=== PATIENT | male | born 1945 | race Two or more races ===

== ENCOUNTER 2017-10-21 04:49 | Inpatient (IN) | payer MEDICARE, MEDICAID ==
[~2017-10-21] VITALS: Ht 175.3 cm; Wt 83.0 kg
--- NOTE | 2017-10-21 04:55 | NUR ---
TO BED 8 BIB FAMILY MEMBER C/O L SIDED CHEST PAIN WITH SOB X1 HR E [employer]. SKIN WARM NONDIAPHORETIC. PT AAOX4 NO ACUTE DISTRESS NOTED, RESP EVEN AND UNLABORED. PLACE TP ON CARDIAC MONITORING, CONTINUOUS POX. PENDING ER MD RON.
[2017-10-21 05:20] LABS: BASOPHILS # (AUTO) 0.1 /CMM (0.0-0.2); BASOPHILS % (AUTO) 1.5 % (0.0-2.0); EOSINOPHILS # (AUTO) 0.2 /CMM (0.0-0.7); EOSINOPHILS % (AUTO) 2.6 % (0.0-6.0); HEMATOCRIT 38 % (39-51); HEMOGLOBIN 13.4 g/dL (13.5-17.5); LYMPHOCYTES # (AUTO) 2.5 /CMM (0.8-4.8); LYMPHOCYTES % (AUTO) 37.3 % (20.0-44.0); MEAN CORPUSCULAR HEMOGLOBIN 33 PG (26.0-33.0); MEAN CORPUSCULAR HGB CONC 36 g/dl (31.0-36.0); MEAN CORPUSCULAR VOLUME 93 fL (80-96); MONOCYTES # (AUTO) 0.3 /CMM (0.1-1.30); MONOCYTES % (AUTO) 4.9 % (2.0-12.0); NEUTROPHILS # (AUTO) 3.6 /CMM (1.8-8.9); NEUTROPHILS % (AUTO) 53.7 % (43.0-81.0); PLATELET COUNT (AUTO) 132 /CMM (150-450); RED BLOOD CELL COUNT(AUTO) 4.06 MIL/uL (4.5-6.0); WHITE BLOOD COUNT (AUTO) 6.7 K/uL (4.3-11.0)
[2017-10-21] MEDS ORDERED: ASPIRIN 325 MG TABLET ONE (05:27)
[2017-10-21] MEDS ORDERED: NITROGLYCERIN 0.4 MG/TAB BOTTLE ONE (05:27)
[2017-10-21] MEDS ORDERED: NITROGLYCERIN 0.4 MG/TAB BOTTLE SL ONE (05:30)
[2017-10-21] MEDS ORDERED: ASPIRIN 325 MG TABLET PO ONE (05:30)
[2017-10-21 05:33] LABS: INR 1.07 (0.87-1.13)
[2017-10-21 05:34] LABS: CALCIUM, SERUM 8.8 mg/dL (8.5-10.1); CARBON DIOXIDE 21 mmol/L (21-32); CHLORIDE 102 mmol/L (98-107); CREATININE 1.2 mg/dL (0.6-1.3); GLUCOSE 119 mg/dL (74-106); POTASSIUM 3.9 mmol/L (3.5-5.1); SODIUM SERUM 135 mmol/L (136-145); UREA NITROGEN, BLOOD 19 mg/dL (7-18)
[2017-10-21 05:39] LABS: TROPONIN I < 0.017 ng/mL (0.00-0.056)
[2017-10-21] MEDS ORDERED: SOFO1TAB PO (05:52)
--- NOTE | 2017-10-21 05:53 | NUR ---
REPORT CALLED TO [facility]. ER MD TALKING TO ER MD REGARDING TP ADMISSION. WILL TRANSPORT PT VIA ACLS PRTOCOL.
--- NOTE | 2017-10-21 05:53 | NUR ---
RN NOTE RECEIVED REPORT FROM ED MANAGER RN FOR CONTINUITY OF CARE.
--- NOTE | 2017-10-21 06:10 | NUR ---
RN NOTE RECEIVED PT IN NO ACUTE DISTRESS IN BED. PT IS A/O X 4 AND ABLE MAKE NEEDS KNOWN. PT IS ON O2 @ 2LPM NC AND TOLERATING WELL WITH O2 SAT @ 98%. PT IS ON TELE WITH SR ON THE MONITOR. PT IS ABLE TO AMBULATE TO BED WITH A STEADY GAIT. PT HAS RFA 18G THAT IS CLEAN DRY INTACT AND PATENT WITH SALINE FLUSH. PT NOT C/O ANY SOB OR DIFFICULTY BREATHING. PT C/O LOWER BACK PAIN FROM PREVIOUS BACK SX. HELPED PT REPOSITION INTO COMFORTABLE POSITION. BED IN LOW LOCK POSITION WITH RIALS UP X 2. ALL SAFETY MEASURES ENSURED AND CARRIED OUT. WILL CONTINUE TO MONITOR PT.
[2017-10-21 06:26] VITALS: BP 153/90
[2017-10-21] MEDS ORDERED: ONDANSETRON HCL/PF 4 MG/2 ML VIAL IVP PRN (06:30)
[2017-10-21] MEDS ORDERED: NITROGLYCERIN PACKET 1 GM PACKET TOP ONE (06:30)
[2017-10-21] MEDS ORDERED: HYDROCODONE/APAP 5/325MG 1 EACH TABLET PO PRN (06:30)
[2017-10-21] MEDS ORDERED: MAG HYDROX/AL HYDROX/SIMETH 30 ML UDC PO PRN (06:30)
[2017-10-21] MEDS ORDERED: Z GUARD REMEDY 2 OZ OINT TP PRN (06:30)
[2017-10-21] MEDS ORDERED: MAGNESIUM HYDROXIDE 30 ML UDC PO PRN (06:30)
[2017-10-21] MEDS ORDERED: ACETAMINOPHEN 325 MG TABLET PO PRN (06:30)
--- NOTE | 2017-10-21 07:23 | NUR ---
RN NOTE ATTEMPTED TO PLACE PT ON O2 VIA NC AND PT REFUSED. EDUCATED PT ON WHY O2 IS NECESSARY. PT STILL REFUSED. CHECK O2 SAT AND PT IS @ 98% ON RA.
--- NOTE | 2017-10-21 07:30 | NUR ---
RN OPENING NOTES RECEIVED PT. PT STABLE AND RESTING IN BED. A/OX3. NO S/S OF RESP DISTRESS OR SOB. PT DENIES PRESENCE OF PAIN OR CHEST PAIN. PT REFUSING TO USE NC FOR 2L O2, HOWEVER O2 SAT HAS REMAINED WNL, WILL CONTINUE TO MONITOR. IV ACCESS LOCATED ON RIGHT FA 18G CURRENTLY SL. SAFETY MEASURES IN PLACE, CALL LIGHT WITHIN REACH. WILL CONTINUE TO MONITOR.
[2017-10-21 08:00] VITALS: BP 131/70
[2017-10-21] MEDS: ENOXAPARIN SODIUM 40 MG/0.4 ML DISP.SYRIN SQ SCH (09:00)
[2017-10-21] MEDS: ASPIRIN 325 MG TABLET PO SCH (09:00)
[2017-10-21 09:51] LABS: THYROID STIMULATING HORMONE 2.598 uIU/mL (0.358-3.74)
[2017-10-21 12:00] VITALS: BP 139/76
[2017-10-21] MEDS: METOPROLOL TARTRATE 50 MG TABLET PO SCH ×2 (12:00→18:00)
[2017-10-21] MEDS: NITROGLYCERIN PACKET 1 GM PACKET TOP SCH ×2 (13:00→21:00)
--- NOTE | 2017-10-21 15:35 | NUR ---
RN NOTES PT REFUSING AM AND NOON TIMES MEDICATIONS. ALL PT NEEDS ANTICIPATED AND MET. SAFETY MEASURES IN PLACE, CALL LIGHTW [place] REACH. WILL CONTINUE TO MONITOR.
[2017-10-21 16:00] VITALS: BP 144/80
--- NOTE | 2017-10-21 18:49 | NUR ---
RN CLOSING NOTE PT IN BED EATING DINNER. STABLE, VSS. NO S/S OF RESP DISTRESS OR SOB. PT CONTINUES TO REFUSE TO WEAR NC. PT SCHEDULED FOR CARDIAC STRESS TEST IN AM OF 10/22/17. CONSENT SIGNED AND PLACED IN CHART. ALL PT NEEDS ANTICIPATED AND MET. SAFETY MEASURES IN PLACE, CALL LIGHT WITHIN REACH. WILL ENDORSE TO INFORMATION MANAGEMENT MANAGER FOR [facility].
[2017-10-21 20:00] VITALS: BP 139/85
--- NOTE | 2017-10-21 20:00 | NUR ---
TELE 1 RN NOTE PT IN UP IN HALLWAY AMBULATING WITHOUT FWW, FWW PROVIDED. AMBULATING WITH SLOW STEADY GAIT. NO DISTRESS OR DISCOMFORT NOTED. DENIES ANY CHEST PAIN. SL RFA # 18 G INTACT AND PATENT. ON TELE SR HR 82. REMINDED PT NOT TO DRINK ANY COFFEE AND NO EATING THE DRINKING AFTER MIDNIGHT. PT COMPLY. VSS. ON BED SIDE RAILS UP X 2 AND CALL LIGHT WITHIN REACH. CONTINUE TO MONITOR HIM.
[2017-10-22] VITALS: BP 145/65
[2017-10-22] MEDS: NITROGLYCERIN PACKET 1 GM PACKET TOP SCH (05:40)
[2017-10-22] MEDS: METOPROLOL TARTRATE 50 MG TABLET PO SCH ×2 (05:40)
--- NOTE | 2017-10-22 06:37 | NUR ---
TELE 1 RN NOTE PT IN BED ASLEEP, EASILY AROUSABLE. NO DISTRESS OR DISCOMFORT NOTED. DENIES PAIN. ON TELE SR HR 82 SIDE RAILS UP X 2 AND CALL LIGHT WITHIN REACH. WILL ENDORSE TO DAY SHIFT NURSE FOR CONTINUE TO CARE.
[2017-10-22 08:00] VITALS: BP 144/80
[2017-10-22] MEDS ORDERED: REGADENOSON 0.4 MG/5 ML DISP.SYRIN IVP ONE (08:00)
[2017-10-22] MEDS: ENOXAPARIN SODIUM 40 MG/0.4 ML DISP.SYRIN SQ SCH (09:00)
[2017-10-22] MEDS: ASPIRIN 325 MG TABLET PO SCH (09:00)
[2017-10-22] MEDS ORDERED: METO50TA16 PO (11:10)
[2017-10-22] MEDS ORDERED: ASPI-1152 PO (11:10)
--- NOTE | 2017-10-22 11:30 | NUR ---
RN NOTE PT LEFT AMA, HE SIGNED AMA PAPER, AFTER THE STRESS TEST COMPLETED WITHOUT WAITING THE RESULTS EVEN THOUGH D/C PLAN WAS TO SEND THE PT HOME IF STRESS TEST IS NEGATIVE. PT HAD AN IMPORTANT SCHEDULED APPOINTMENT AT [facility] FOR [facility] AT 1200, THAT IS WHY HE COULD NOT WAIT ANY LONGER. PT IS STABLE, NO SOB, DENIES PAIN. PRESCRIPTION AND PAPERS GIVEN TO PT, PT LEFT WITH DAUGHTER LANNY VIA OWN TRANSPORTATION.
== END 2017-10-22 11:36 | disposition left against medical advice (07) | DRG 303 ==
LOC: ER 04:51 → TELE-TD 05:47 → TELE1 06:29 → MEDSG1 10-22 09:49
PROVIDERS: ADMIT Internal Medicine; ATTEND Internal Medicine
DX: I25.10 Atherosclerotic heart disease of native coronary artery without angina pectoris (principal); E87.1 Hypo-osmolality and hyponatremia; K75.9 Inflammatory liver disease, unspecified; I10 Essential (primary) hypertension; F17.210 Nicotine dependence, cigarettes, uncomplicated; I25.2 Old myocardial infarction; Z98.61 Coronary angioplasty status; Z91.14 Patient's other noncompliance with medication regimen
CPT/HCPCS: 36415; 71045-TC; 80048-TC; 82728-TC; 83540-TC; 84439-TC; 84443-TC; 84484-TC; 85025-TC; 85730-TC; 87081-TC; 93307-TC; A4606; A9502; J1650; J2785; Z7610